=== PATIENT | female | born 1975 | race Caucasian/White ===

== ENCOUNTER 2018-01-20 10:09 | Day surgery (SDC) | payer BC ==
[~2018-01-20 10:09] MED LIST: Lactated Ringers 1,000 ML IV SCH
[2018-01-20] MEDS ORDERED: fentaNYL 100 MCG/2 ML SDV ONE (11:32)
[2018-01-20] MEDS ORDERED: Propofol 200 MG/20 ML SDV ONE (11:32)
--- NOTE | 2018-01-21 09:37 | OR ---
PREOPERATIVE DIAGNOSIS: Family history of colon cancer. POSTOPERATIVE DIAGNOSIS: Family history of colon cancer. PROCEDURE PERFORMED: Colonoscopy. INDICATION: The patient is a 42-year-old female with a strong family history of colon cancer, presents for a colonoscopy for screening purposes. PROCEDURE IN DETAIL: This was done in the operating room, sedation was given per Anesthesia. She was placed in left lateral position. First, a rectal exam was done, it was normal. Scope was introduced into the rectum, slowly advanced into the rectum, sigmoid, descending, transverse, and ascending colon until the cecum was reached. Upon reaching the cecum, scope was slowly withdrawn looking at all mucosal surfaces on the way out. No mucosal abnormalities, lesions, or polyps were noted. FINAL DIAGNOSIS: Normal colonoscopy. BKD: 01/20/2018 12:35:56 MODL: 01/20/2018 17:31:39 /[id number]
== END 2018-01-20 13:55 | disposition home or self-care (01) ==
LOC: VM.SDS 10:09
PROVIDERS: ATTEND Surgery
DX: Z12.11 Encounter for screening for malignant neoplasm of colon (principal); F32.5 Major depressive disorder, single episode, in full remission; Z80.0 Family history of malignant neoplasm of digestive organs; Z88.1 Allergy status to other antibiotic agents
CPT/HCPCS: 81025; J2704; J3010; J7120

== ENCOUNTER 2022-04-07 12:21 | Emergency (ER) | payer OTHER ==
[2022-04-07] MEDS ORDERED: Take Home: Doxycycline 100 MG Tab, 4 Tab Pack PO ONE (12:56)
== END 2022-04-07 13:09 | disposition home or self-care (01) ==
LOC: VM.ED 12:21
DX: J18.9 Pneumonia, unspecified organism (principal); Z88.0 Allergy status to penicillin
CPT/HCPCS: 71045; 99283-25; 99284; A9270-GY

== ENCOUNTER 2022-08-25 12:38 | Emergency (ER) | payer OTHER ==
[2022-08-25] MEDS: Ciprofloxacin 0.3% Ophth Soln 2.5 ML Bottle EYELF ONE (13:51)
== END 2022-08-25 13:55 | disposition home or self-care (01) ==
LOC: VM.ED 12:38
DX: H10.9 Unspecified conjunctivitis (principal); Z88.0 Allergy status to penicillin
CPT/HCPCS: 99282; A9270

== ENCOUNTER 2023-11-17 12:23 | Emergency (ER) | payer OTHER ==
[2023-11-17] MEDS: Take Home: Doxycycline 100 MG Cap, 4 Cap Pack PO ONE (12:47)
[2023-11-17] MEDS: Take Home: predniSONE 20 MG, 2 Tab Pack PO ONE (12:47)
== END 2023-11-17 12:50 | disposition home or self-care (01) ==
LOC: VM.ED 12:23
DX: J45.901 Unspecified asthma with (acute) exacerbation (principal); Z88.0 Allergy status to penicillin
CPT/HCPCS: 99284; A9270-GY; J7512